=== PATIENT | male | born 1960 | race Caucasian/White ===

== ENCOUNTER → 2018-05-18 14:10 | Outpatient (CLI) | payer OTHER, SELFPAY ==
--- NOTE | 2018-05-18 14:13 | DI.RAD.S_ITS ---
PROCEDURE: XR LUMBAR SPINE MIN 4V INDICATIONS: spinal stenosis with scoliosis TECHNIQUE: 4 views of the lumbar spine acquired. COMPARISON: [facility], MR, L-SPINE WITHOUT CONTRAST, 03/15/2016, 16:19. [facility], CR, CHEST 2 VIEW, 12/19/2017, 15:05. [facility], CR, XR LUMBAR SPINE 2 OR 3VW, 05/14/2016, 15:46. FINDINGS: Bones: 5 [id number] vertebrae are present. Moderate to severe dextroscoliosis limiting the exam. Grade 1 retrolisthesis L2-L3. Multilevel disc degeneration, moderate to severe at the L3-L4 level. Moderate L4-L5 and L5-S1 disc degeneration and neural foraminal narrowing. No acute vertebral body compression fractures. Mild anterior wedging again visualized at the T12 and T11 levels. No suspicious bony lesions. Soft tissues: Overlying bowel gas pattern is normal. No suspicious soft tissue calcifications. Vascular calcifications indicate atherosclerosis. IMPRESSION: 1. Dextroscoliosis limiting the examination which again demonstrates multilevel degenerative change. 2. Mild wedging of the T12 and T11 levels similar to prior exams. Dictated by: Anthony Thomas [facility] Interpreted: Messi Santamaria MD on 05/18/2018 at 15:13 Approved by: Messi Santamaria M.D. on 05/18/2018 at 17:11
== END ==
PROVIDERS: PCP Family Medicine; Visit Provider Physical Medicine & Rehabilitation
DX: M48.061 Spinal stenosis, lumbar region without neurogenic claudication (principal); M41.9 Scoliosis, unspecified; M43.16 Spondylolisthesis, lumbar region; M51.36 Other intervertebral disc degeneration, lumbar region; M51.37 Other intervertebral disc degeneration, lumbosacral region; M48.54XS Collapsed vertebra, not elsewhere classified, thoracic region, sequela of fracture
CPT/HCPCS: 72110

== ENCOUNTER → 2018-06-15 07:20 | Outpatient (CLI) | payer OTHER, SELFPAY ==
--- NOTE | 2018-06-15 07:21 | DI.MRI.S_ITS ---
PROCEDURE: MR LUMBAR SPINE WO CON INDICATIONS: spinal stenosis with scoliosis TECHNIQUE: Noncontrast sagittal T1 spin echo and T2 fast echo, sagittal STIR, axial T1 and T2 fast spin echo through the lumbar spine. In cases with scoliosis, additional coronal T2 fast spin echo may be performed. COMPARISON: [facility], CR, XR LUMBAR SPINE 2 OR 3VW, 05/14/2016, 15:46. [facility], CR, XR LUMBAR SPINE MIN 4V, 05/18/2018, 13:50. FINDINGS: Image quality: Excellent. Alignment and Curvature: There is trace L1-L2, L2-L3, L3-L4 and L4-L5 retrolisthesis. There is approximately 25? of convex right lumbar spine scoliosis. Bone Marrow: Reactive endplate change is noted adjacent to the L1-L2, L2-L3, L3-L4 and L4-L5 discs. Small chronic appearing Schmorl's nodes noted in the inferior endplate of the T11, T12, L1 and L4 vertebral bodies. Small chronic appearing Schmorl's nodes noted in the superior endplate of the L2 and L3 vertebral bodies. Mild physiologic wedging of the T12 and L1 vertebral bodies noted. No acute vertebral body compression fractures. Spinal Cord: Conus medullaris terminates at the L1 level. Visualized cord demonstrates normal signal and size. Paraspinous Soft Tissues: No paravertebral masses. T12-L1: Loss of disc signal. Mild, diffuse disc bulge. Mild bilateral facet hypertrophy. Mild narrowing of the central canal. Mild bilateral neural foraminal narrowing. No neural impingement. Focal high intensity zone within the posterior annulus compatible with a fissure. L1-L2: Loss of disc signal and height. Mild, diffuse disc bulge. Mild bilateral facet hypertrophy. Mild narrowing of the central canal. Mild bilateral neural foraminal narrowing. No neural impingement. L2-L3: Loss of disc signal and height. Mild, diffuse disc bulge. Mild facet and mild ligamentum flavum hypertrophy. Mild to moderate narrowing of the central canal. Mild right and moderate left neural foraminal narrowing. No neural impingement. L3-L4: Loss of disc signal and height. Posterior disc osteophyte complex. Moderate facet and mild ligamentum flavum hypertrophy. Severe central stenosis. Severe right and moderate left neural foraminal narrowing with flattening deformity exiting right L3 nerve root. L4-L5: Loss of disc signal. Mild, diffuse disc bulge. Moderate right and mild left facet hypertrophy. Mild ligamentum flavum hypertrophy. Mild to moderate narrowing of the central canal. Severe right and moderate left neural foraminal narrowing flattening deformity exiting right L4 nerve root. L5-S1: Loss of disc signal. Minimal, diffuse disc bulge. Mild bilateral facet hypertrophy. No central stenosis. Mild bilateral neural foraminal narrowing. No neural impingement. IMPRESSION: 1. Convex right scoliosis. 2. Multilevel degenerative disc disease. 3. Multilevel facet arthropathy. 4. Severe L3-L4 central canal stenosis. Mild to moderate L2-L3 and L4-L5 central canal narrowing. Mild T12-L1 and L1-L2 Central canal narrowing. 5. Severe right and moderate left L3-L4 and L4-L5 neural foraminal narrowing. Mild right and moderate left L2-L3 neural foraminal narrowing. Mild bilateral T12-L1, L1-L2 and L5-S1 neural foraminal narrowing. Dictated by: Nina Ozuna MD, PhD on 06/15/2018 at 10:04 Approved by: Nina Ozuna MD, PhD on 06/15/2018 at 10:16
== END ==
PROVIDERS: PCP Family Medicine; Visit Provider Physical Medicine & Rehabilitation
DX: M48.061 Spinal stenosis, lumbar region without neurogenic claudication (principal); M51.16 Intervertebral disc disorders with radiculopathy, lumbar region; M47.26 Other spondylosis with radiculopathy, lumbar region; M41.26 Other idiopathic scoliosis, lumbar region
CPT/HCPCS: 72148

== ENCOUNTER 2018-06-24 09:39 | Outpatient (CLI) | payer OTHER, SELFPAY ==
[2018-06-24] VITALS (11 sets, daily range): BP systolic 101–149; BP diastolic 79–104; PULSE 71–94; RESP 14–20; TEMP 36.4; O2SAT 95–99
--- NOTE | 2018-06-24 09:40 | DI.RAD.S_ITS ---
PROCEDURE: PAIN L INTERLAMINAR/CAUDAL INJ INDICATIONS: SPINAL STENOSIS FINDINGS: Fluoroscopic spot filming was performed to verify placement of spinal needles at the L2-3 level(s), as labeled on the films. Appropriate location(s) of the needle tip(s) was confirmed by injection of iodinated contrast. IMPRESSION: Successful left-sided L2-L3 transforaminal needle tip localization for epidural steroid injection. Dictated by: Messi Santamaria M.D. on 06/25/2018 at 9:56 Approved by: Messi Santamaria M.D. on 06/25/2018 at 9:57
[2018-06-24] MEDS: MIDAZOLAM 5 MG/5 ML VIAL IV (10:30)
[2018-06-24] MEDS: DEXAMETHASONE 10 MG/ML VIAL 20 MG INJ (10:37)
[2018-06-24] MEDS: methylPREDNISolone acetate 80 MG/ML VIAL INJ (10:37)
[2018-06-24] MEDS: BUPIVACAINE 0.25% (PF) VIAL 2 ML INJ (10:37)
[2018-06-24] MEDS: IOPAMIDOL 15 ML VIAL 3 ML INJ (10:37)
--- NOTE | 2018-06-24 10:54 | P.PCN_ITS ---
Procedures Date/Time Date of procedure: 06/24/18 Time of procedure: 10:53 General Procedure description: POST OP DIAGNOSIS 1. HNP WITH RADICULAR FEATURES, 2. MULTILEVEL CENTRAL STENOSIS, PROCEDURES 1. FLUORSCOPICALLY GUIDED CONTRAST CONTROLLED INTERLAMINAR EPIDURAL STEROID INJECTION - L2/3 PHYSICIAN: Kosta Helm DO INDICATIONS Kosta is referred by for treatment of Bilateral Foraminal Stenosis L> R LE symptoms. FINDINGS Multilevel Central Spinal Stenosis with Nerve Root Compression DESCRIPTION OF PROCEDURE Fluoroscopically guided, contrast-controlled L2/3 translaminar epidural steroid injection. Following denial of allergy and review of potential side effects and complications, including, but not necessarily limited to, infection, allergic reaction, local tissue breakdown, temporary as well as permanent nerve injury, paralysis, stroke and possible , the patient indicated that the patient understood and agreed to proceed. An informed consent document was signed by the patient, witnessed by a nurse, and placed in the patient's chart. Additionally, other treatment options including modalities, medications, and physical therapy were reviewed with the patient. After review of previous anaesthesic history and IV conscious sedation the patient was deemed safe to proceed with todays procedure with IV conscious sedation as ASA class II designation. Safety time-out was performed to confirm patient ID, procedure to be performed and site of procedure. IV sedation was accomplished with a combination of 5mg of Versed was administered by the RN after DO order, titrated to patient comfort during the course of the procedure while the patient remained responsive to all verbal commands. In the prone position, following sterile prep and drape of the lumbar region, the L2/3 translaminar space was identified fluoroscopically. The skin was anesthetized via a 25-gauge, 1.5-inch needle with 1% lidocaine solution. At this point, a 22-gauge short bevel spinal needle was atraumatically introduced and advanced under fluoroscopic guidance into the region of the L2/3 translaminar space. Depth was confirmed on lateral view. Radiological data, including multiple fluoroscopic views of the lumbar spine, reveal a spinal needle at the L2/3 translaminar space. Lateral views then show placement of the needle in the epidural space. Subsequent views show contrast material flowing superiorly and inferiorly in the epidural space. No vascular or intrathecal uptake is observed. At this point, using loss of resistance technique with saline and air, the epidural space was entered. This was confirmed following negative aspiration with injection of approximately 1.5 cc of Isovue 200, showing excellent epidural flow without vascular or intrathecal uptake. At this point, 1 cc of 1 % lidocaine solution combined with 3 cc or 20 mg of dexamethasone and 80mg Depo medrol was injected without incident. The patient tolerated the procedure well without signs or symptoms of complications prior to transfer to the recovery area continued monitoring without incident. The patient was then transferred to the recovery area where they were observed for an appropriate period of time after the injection. The patient reported a VAS score of 6 prior to the procedure and a post-procedure VAS of 0. Total Fluoroscopy Time: 11.8 seconds Total Conscious Sedation Time: 24min POST OP INSTRUCTIONS The patient was provided a Pain Log to continue to record their response to the target-specific procedure prior to follow-up visit with their referring physician. Additionally, specific post-injection care instructions and a contact number to our office were provided if concerns arise regarding possible complications associated with the procedure are suspected. Kosta eHlm DO
== END 2018-06-24 11:25 ==
LOC: RAD 09:40
PROVIDERS: PCP Family Medicine; Visit Provider Physical Medicine & Rehabilitation
DX: M48.061 Spinal stenosis, lumbar region without neurogenic claudication (principal); M51.16 Intervertebral disc disorders with radiculopathy, lumbar region
CPT/HCPCS: 62323; 99152; J1040; J1100; J2250

== ENCOUNTER → 2020-04-11 07:13 | Outpatient (CLI) | payer OTHER, SELFPAY ==
[2020-04-11 07:46] LABS: Add Manual Diff / Slide Review NO; Basophils Absolute Auto 0 /uL (0-100); Basophils Percent Auto 0.7 % (0-2); Eosinophils Absolute Auto 100 /uL (0-450); Eosinophils Percent Auto 1.5 % (2-4); Hemoglobin 14.9 g/dL (13.5-17.5); Lymphocytes Absolute Auto 1900 /uL (1100-4500); Mean Corpuscular HGB Conc 33.2 % (30-36); Mean Corpuscular Hemoglobin 30.6 PG (26-34); Mean Corpuscular Volume 92.1 fL (80-100); Monocytes Absolute Auto 500 /uL (0-900); Monocytes Percent Auto 9.7 % (3-14); Neutrophils Absolute Auto 2300 /uL (1500-7000); Neutrophils Percent Auto 48.1 % (50-75); Platelet Count 193 X10^3/uL (150-400); Red Blood Cell Count 4.88 X10^6/uL (4.5-5.9); Red Cell Distribution Width 13.3 % (11.6-14.8); White Blood Cell Count 4.9 X10^3/uL (4.5-11.0)
[2020-04-11 07:59] LABS: Alanine Aminotransferase 19 IU/L (<50); Albumin 4.3 g/dL (3.5-5.0); Albumin Globulin Ratio 1.5 (1.0-2.8); Alkaline Phosphatase 61 U/L (38-126); Aspartate Aminotransferase 27 IU/L (17-59); BUN Creatinine Ratio 21.9 (6-22); Bilirubin Total 0.6 mg/dL (0.2-1.3); Blood Urea Nitrogen 21 mg/dL (9-20); Calcium 9.5 mg/dL (8.4-10.2); Carbon Dioxide 28 mmol/L (22-32); Chloride 106 mmol/L (98-107); Cholesterol 232 mg/dL (140-199); Estimated Glomerular Filt Rate > 60.0 mL/min (>60); Globulin 2.8 g/dL (1.7-4.1); Glucose 92 mg/dL (70-100); HDL Cholesterol 40 mg/dL (40-60); HEMOLYSIS < 15 (0-50); LDL Cholesterol Calculated 159 mg/dL (<100); Sodium 139 mmol/L (137-145); Total Protein 7.1 g/dL (6.3-8.2); Triglycerides 166 mg/dL (35-150)
[2020-04-11 08:28] LABS: Prostate Specific Antigen Scrn 2.65 ng/mL (0.1-4.0)
[2020-04-11 08:29] LABS: TSH w/ Reflex to FT4 1.52 uIU/mL (0.47-4.68)
== END ==
PROVIDERS: Referring Provider Registered Nurse Diabetes Educator; Visit Provider Registered Nurse Diabetes Educator
DX: E78.5 Hyperlipidemia, unspecified (principal); K22.70 Barrett's esophagus without dysplasia; R51 Headache; Z80.9 Family history of malignant neoplasm, unspecified; Z12.5 Encounter for screening for malignant neoplasm of prostate
CPT/HCPCS: 36415; 80053; 80061; 84443; 85025; G0103

== ENCOUNTER → 2020-04-17 07:04 | Outpatient (CLI) | payer OTHER, SELFPAY ==
--- NOTE | 2020-04-17 07:05 | DI.MRI.S_ITS ---
PROCEDURE: MR HEAD/BRAIN WO CON INDICATIONS: Headaches TECHNIQUE: Noncontrast axial T1 spin echo, axial T2 fast spin echo, sagittal and axial FLAIR, coronal T2 fast spin echo, axial gradient echo, axial diffusion and ADC through the brain. COMPARISON: None. FINDINGS: Image quality: Excellent. CSF Spaces: Basal cisterns are patent. No extra-axial fluid collections. Ventricles are normal in size and shape. Brain: No intracranial masses or hemorrhage. Wren/white matter interface is normal. Brainstem appears normal. Diffusion-weighted images demonstrate no acute ischemic insult. No chronic ischemic insults. Normal intravascular flow voids are present. Skull and face: Calvarium has normal marrow signal. Orbits appear normal. Sinuses: Sinuses and mastoids are clear. IMPRESSION: Unremarkable intracranial study, without an imaging explanation found for the patient's presenting history of headache. Dictated by: Michele Fernandez M.D. on 04/17/2020 at 9:40 Approved by: Michele Fernandez M.D. on 04/17/2020 at 9:40
== END ==
PROVIDERS: PCP Registered Nurse Diabetes Educator; Referring Provider Registered Nurse Diabetes Educator; Visit Provider Registered Nurse Diabetes Educator
DX: R51 Headache (principal)
CPT/HCPCS: 70551

== ENCOUNTER → 2021-01-02 07:01 | Outpatient (CLI) | payer OTHER, SELFPAY ==
[2021-01-02 08:56] LABS: Hematocrit 45.3 % (41-53); Hemoglobin 15.1 g/dL (13.5-17.5); Mean Corpuscular HGB Conc 33.4 % (30-36); Mean Corpuscular Hemoglobin 30.3 PG (26-34); Mean Corpuscular Volume 90.9 fL (80-100); Platelet Count 202 X10^3/uL (150-400); Red Blood Cell Count 4.98 X10^6/uL (4.5-5.9); Red Cell Distribution Width 13.4 % (11.6-14.8)
[2021-01-02 09:22] LABS: Alanine Aminotransferase 18 IU/L (<50); Albumin 4.3 g/dL (3.5-5.0); Albumin Globulin Ratio 1.4 (1.0-2.8); Alkaline Phosphatase 58 U/L (38-126); Aspartate Aminotransferase 25 IU/L (17-59); BUN Creatinine Ratio 23.4 (6-22); Bilirubin Total 0.5 mg/dL (0.2-1.3); Blood Urea Nitrogen 25 mg/dL (9-20); Calcium 9.7 mg/dL (8.4-10.2); Carbon Dioxide 29 mmol/L (22-32); Chloride 104 mmol/L (98-107); Cholesterol 238 mg/dL (140-199); Estimated Glomerular Filt Rate > 60.0 mL/min (>60); Glucose 86 mg/dL (70-100); HDL Cholesterol 46 mg/dL (40-60); HEMOLYSIS < 15 (0-50); LDL Cholesterol Calculated 164 mg/dL (<100); Potassium 3.9 mmol/L (3.4-5.1); Sodium 140 mmol/L (137-145); Total Protein 7.3 g/dL (6.3-8.2); Triglycerides 142 mg/dL (35-150)
[2021-01-02 09:40] LABS: Vitamin D 25 Hydroxy (D3) 48.1 ng/mL (30.0-100.0)
[2021-01-02 09:51] LABS: Prostate Specific Antigen 2.67 ng/mL (0.10-4.00)
[2021-01-02 09:53] LABS: Testosterone 561 ng/dL (71.8-623)
== END ==
PROVIDERS: PCP Registered Nurse Diabetes Educator; Referring Provider Registered Nurse Diabetes Educator; Visit Provider Registered Nurse Diabetes Educator
DX: E78.5 Hyperlipidemia, unspecified (principal); R53.83 Other fatigue; Z80.9 Family history of malignant neoplasm, unspecified
CPT/HCPCS: 36415; 80053; 80061; 82306; 84153; 84403; 84443; 85027

== ENCOUNTER → 2021-06-14 07:09 | Outpatient (CLI) | payer OTHER, SELFPAY ==
[2021-06-14 09:03] LABS: Cholesterol 146 mg/dL (140-199); HDL Cholesterol 56 mg/dL (40-60); LDL Cholesterol Calculated 72 mg/dL (<100); Triglycerides 88 mg/dL (35-150)
== END ==
PROVIDERS: PCP Registered Nurse Diabetes Educator; Referring Provider Registered Nurse Diabetes Educator; Visit Provider Registered Nurse Diabetes Educator
DX: E78.5 Hyperlipidemia, unspecified (principal)
CPT/HCPCS: 36415; 80061

== ENCOUNTER → 2022-10-28 07:05 | Outpatient (CLI) | payer OTHER, SELFPAY ==
[2022-10-28 08:31] LABS: Hematocrit 44.1 % (41-53); Hemoglobin 15.2 g/dL (13.5-17.5); Mean Corpuscular HGB Conc 34.4 % (30-36); Mean Corpuscular Hemoglobin 31.7 PG (26-34); Mean Corpuscular Volume 92.4 fL (80-100); Platelet Count 193 X10^3/uL (150-400); Red Blood Cell Count 4.78 X10^6/uL (4.5-5.9); Red Cell Distribution Width 13.2 % (11.6-14.8)
[2022-10-28 08:55] LABS: Alanine Aminotransferase 30 IU/L (<50); Albumin 4.4 g/dL (3.5-5.0); Albumin Globulin Ratio 1.5 (1.0-2.8); Alkaline Phosphatase 56 U/L (38-126); Aspartate Aminotransferase 29 IU/L (17-59); BUN Creatinine Ratio 23.9 (6-22); Bilirubin Total 0.5 mg/dL (0.2-1.3); Blood Urea Nitrogen 17 mg/dL (9-20); Calcium 9.1 mg/dL (8.4-10.2); Carbon Dioxide 28 mmol/L (22-32); Chloride 104 mmol/L (98-107); Cholesterol 164 mg/dL (140-199); Estimated Glomerular Filt Rate > 60 mL/min (>60); Glucose 93 mg/dL (80-110); HDL Cholesterol 47 mg/dL (40-60); HEMOLYSIS < 15 (0-50); LDL Cholesterol Calculated 94 mg/dL (<100); Sodium 142 mmol/L (137-145); Total Protein 7.4 g/dL (6.3-8.2); Triglycerides 115 mg/dL (35-150)
[2022-10-28 09:22] LABS: Prostate Specific Antigen 2.88 ng/mL (0.10-4.00)
[2022-10-28 09:28] LABS: TSH w/ Reflex to FT4 2.25 uIU/mL (0.47-4.68)
== END ==
PROVIDERS: PCP Registered Nurse Diabetes Educator; Referring Provider Registered Nurse Diabetes Educator; Visit Provider Registered Nurse Diabetes Educator
DX: E78.5 Hyperlipidemia, unspecified (principal); Z80.9 Family history of malignant neoplasm, unspecified
CPT/HCPCS: 36415; 80053; 80061; 84153; 84443; 85027

== ENCOUNTER → 2022-11-13 16:28 | Outpatient (CLI) | payer OTHER, SELFPAY ==
--- NOTE | 2022-11-13 16:30 | DI.RAD.S_ITS ---
PROCEDURE: XR LUMBAR SPINE MIN 4V INDICATIONS: BACK PAIN TECHNIQUE: 5 views of the lumbar spine were acquired, including bilateral oblique views. COMPARISON: [facility], , XR LUMBAR SPINE MIN 4V, 05/18/2018, 13:50. FINDINGS: Bones: 5 nonrib-bearing vertebrae are present convex right scoliosis, Louis angle of 31?. Grade 1 retrolisthesis of L2 on L3. Moderate to severe disc height loss at L1-2 and L2-3. Mild at remaining levels. Multilevel facet arthrosis. Soft tissues: Overlying bowel gas pattern is normal. No suspicious soft tissue calcifications. Oblique images: No pars defects. IMPRESSION: 1. Convex right rotoscoliosis. 2. Multilevel [id number] degenerative disc disease. Dictated by: John Cardenas M.D. on 11/13/2022 at 17:13 Approved by: John Cardenas M.D. on 11/13/2022 at 17:15
== END ==
PROVIDERS: PCP Registered Nurse Diabetes Educator; Referring Provider Physical Medicine & Rehabilitation; Visit Provider Physical Medicine & Rehabilitation
DX: M51.16 Intervertebral disc disorders with radiculopathy, lumbar region (principal); M41.20 Other idiopathic scoliosis, site unspecified; M48.061 Spinal stenosis, lumbar region without neurogenic claudication
CPT/HCPCS: 72110

== ENCOUNTER 2022-12-12 09:50 | Outpatient (CLI) | payer OTHER, SELFPAY ==
[2022-12-12] VITALS (10 sets, daily range): BP systolic 112–136; BP diastolic 80–87; PULSE 73–85; RESP 11–20; TEMP 36.6; O2SAT 92–97
--- NOTE | 2022-12-12 09:52 | DI.RAD.S_ITS ---
PROCEDURE: PAIN L INTERLAMINAR/CAUDAL INJ INDICATIONS: SPONDYLOSIS COMPARISON: [facility], XA, PAIN L INTERLAMINAR/CAUDAL INJ, 06/24/2018, 10:35. FINDINGS: Fluoroscopic spot filming was performed to verify placement of spinal needles at the mid lumbar level(s), as labeled on the films. Appropriate location(s) of the needle tip(s) was confirmed by injection of iodinated contrast. IMPRESSION: Needle placement as above. Dictated by: Justin Holder M.D. on 12/12/2022 at 14:22 Transcribed by: VERONA on 12/12/2022 at 14:22 Approved by: Justin Holder M.D. on 12/12/2022 at 16:34
[2022-12-12] MEDS: IOPAMIDOL 15 ML VIAL 3 ML INJ (10:32)
[2022-12-12] MEDS: BUPIVACAINE 0.25% (PF) VIAL 5 ML SUBCUT (10:32)
[2022-12-12] MEDS: BETAMETHASONE 30 MG/5 ML MDV 6 MG INJ (10:33)
[2022-12-12] MEDS: DEXAMETHASONE 10 MG/ML VIAL 20 MG INJ (10:35)
[2022-12-12] MEDS: MIDAZOLAM 2 MG/2 ML VIAL 4 MG IV (10:36)
--- NOTE | 2022-12-12 10:50 | PM.PROC.IR.1 ---
Date/Time/Diagnoses Date of procedure: 12/12/22 Time of procedure: 10:50 Pre-procedure diagnosis: 1. HNP WITH RADICULAR FEATURES, 2. MULTILEVEL CENTRAL STENOSIS, Post-procedure diagnosis: same Procedure Notes Procedure: 1. FLUOROSCOPICALLY GUIDED CONTRAST CONTROLLED INTERLAMINAR EPIDURAL STEROID INJECTION - L2/3 Indications: Kosta is referred by JO Diamond for treatment of Bilateral Foraminal Stenosis L>R LE symptoms. Physician: Kosta Helm Total Fluoroscopy time (seconds): 8 Total sedation minutes: 14 Complications: none Procedure in detail & Post-procedure care: FINDINGS Multilevel Central Spinal Stenosis with Nerve Root Compression DESCRIPTION OF PROCEDURE Fluoroscopically guided, contrast-controlled L2/3 translaminar epidural steroid injection. Following review of allergy and review of potential side effects and complications, including, but not necessarily limited to, infection, allergic reaction, local tissue breakdown, temporary as well as permanent nerve injury, paralysis, stroke and possible , the patient indicated that the patient understood and agreed to proceed. An informed consent document was signed by the patient, witnessed by a nurse, and placed in the patient's chart. Additionally, other treatment options including modalities, medications, and physical therapy were reviewed with the patient. After review of previous anaesthesic history and IV conscious sedation the patient was deemed safe to proceed with today?s procedure with IV conscious sedation as ASA class II designation. Safety time-out was performed to confirm patient ID, procedure to be performed and site of procedure. IV sedation was accomplished with a combination of 4mg Versed administered by the RN after DO order, titrated to patient comfort during the course of the procedure while the patient remained responsive to all verbal commands. In the prone position, following sterile prep and drape of the lumbar region,the L2/3 translaminar space was identified fluoroscopically. The skin was anesthetized via a 25-gauge, 1.5-inch needle with 1% lidocaine solution. At this point, a 22-gauge short bevel spinal needle was atraumatically introduced and advanced under fluoroscopic guidance into the region of the L2/3 translaminar space. Depth was confirmed on lateral view. Radiological data, including multiple fluoroscopic views of the lumbar spine, reveal a spinal needle at the L2/3 translaminar space. Lateral views then show placement of the needle in the epidural space. Subsequent views show contrast material flowing superiorly and inferiorly in the epidural space. No vascular or intrathecal uptake is observed. At this point, using loss of resistance technique with saline and air, the epidural space was entered. This was confirmed following negative aspiration with injection of approximately 1.5 cc of Isovue 200, showing excellent epidural flow without vascular or intrathecal uptake. At this point, 1 cc of 1% lidocaine solution combined with 3cc or 20mg of dexamethasone and 6mg of betamethasone was injected without incident. The patient tolerated the procedure well without signs or symptoms of complications prior to transfer to the recovery area continued monitoring without incident. The patient was then transferred to the recovery area where they were observed for an appropriate period of time after the injection. The patient reported a VAS score of 8 prior to the procedure and a post-procedure VAS of 1. POST OP INSTRUCTIONS The patient was provided a Pain Log to continue to record their response to the target-specific procedure prior to follow-up visit with their referring physician. Additionally, specific post-injection care instructions and a contact number to our office were provided if concerns arise regarding possible complications associated with the procedure are suspected.
== END 2022-12-12 11:10 | disposition home or self-care (01) ==
LOC: RAD 09:51
PROVIDERS: PCP Registered Nurse Diabetes Educator; Referring Provider Physical Medicine & Rehabilitation; Visit Provider Physical Medicine & Rehabilitation
DX: M51.16 Intervertebral disc disorders with radiculopathy, lumbar region (principal); M48.061 Spinal stenosis, lumbar region without neurogenic claudication
CPT/HCPCS: 62323; 99152; J0702; J1100; J2250; J3490

== ENCOUNTER → 2023-03-12 16:12 | Outpatient (CLI) | payer OTHER, SELFPAY ==
--- NOTE | 2023-03-12 16:28 | DI.MRI.S_ITS ---
PROCEDURE: MR LUMBAR SPINE WO CON INDICATIONS: SCOLIOSIS PROGRESSION RIGHT LOWER EXTREMITY RADICULAR FEATUR TECHNIQUE: Noncontrast sagittal T1 spin echo and T2 fast echo, sagittal STIR, and T2 fast spin echo through the lumbar spine. In cases with scoliosis, additional coronal T2 fast spin echo may be performed. COMPARISON: [facility], , MR LUMBAR SPINE WO CON, 06/15/2018, 7:45. FINDINGS: Image quality: Excellent. Alignment and Curvature: There is 21.9? dextroscoliosis centered at L2. There was 20.7? dextroscoliosis on the comparison MRI dated June 15, 2018. Bone Marrow: Marrow is of normal overall signal. No acute vertebral body compression fractures. Spinal Cord: Conus medullaris terminates at the L1 level. Visualized cord demonstrates normal signal and size. Paraspinous Soft Tissues: No paravertebral masses. T12-L1: Mild disc desiccation and height loss. Broad-based disc bulge. Moderate facet ligamentum flavum hypertrophy. Moderate canal stenosis. Moderate left and no right foraminal stenosis. Findings are unchanged. L1-L2: Moderate disc desiccation and height loss. Broad-based disc bulge. No canal stenosis. Mild left foraminal narrowing. No right foraminal stenosis. Findings are unchanged. L2-L3: Moderate disc desiccation and height loss. Broad-based disc bulge. Moderate facet ligamentum flavum hypertrophy. Moderate bilateral foraminal stenosis. Findings are unchanged. L3-L4: Severe disc desiccation and height loss. Severe facet ligamentum flavum hypertrophy. Severe canal stenosis. Severe right and moderate left foraminal stenosis. Findings are unchanged from the prior study. L4-L5: Moderate disc desiccation and height loss. Moderate facet ligamentum flavum hypertrophy. No canal stenosis. Severe right and moderate left foraminal stenosis. Findings are unchanged. L5-S1: Mild disc desiccation and height loss. Broad-based disc bulge. No canal stenosis. No foraminal stenosis. IMPRESSION: 1. Overall similar findings when compared with the MRI dated June 15, 2018. Right convex scoliotic deformity now measures 21.9?. Dictated by: Willow Hernandez M.D. on 03/12/2023 at 16:48 Approved by: Willow Hernandez M.D. on 03/12/2023 at 16:55
== END ==
PROVIDERS: PCP Registered Nurse Diabetes Educator; Referring Provider Physical Medicine & Rehabilitation; Visit Provider Physical Medicine & Rehabilitation
DX: M41.20 Other idiopathic scoliosis, site unspecified (principal); M48.061 Spinal stenosis, lumbar region without neurogenic claudication; M54.17 Radiculopathy, lumbosacral region
CPT/HCPCS: 72148

== ENCOUNTER 2023-03-27 08:56 | Outpatient (CLI) | payer OTHER, SELFPAY ==
--- NOTE | 2023-03-27 08:57 | DI.RAD.S_ITS ---
PROCEDURE: PAIN L/S TRANSFORAMINAL INJECT INDICATIONS: SPONDYLOSIS COMPARISON: [facility], CR, XR LUMBAR SPINE MIN 4V, 11/13/2022, 16:27. [facility], MR, MR LUMBAR SPINE WO CON, 03/12/2023, 16:28. FINDINGS: Fluoroscopic spot filming was performed to verify placement of spinal needles at the L3-L4 level(s), as labeled on the films. Appropriate location(s) of the needle tip(s) was confirmed by injection of iodinated contrast. IMPRESSION: Fluoroscopy for pain management. Dictated by: Domenico Caro M.D. on 03/27/2023 at 10:08 Approved by: Domenico Caro M.D. on 03/27/2023 at 10:08
[2023-03-27 09:05] VITALS: BP 149/95; PULSE 66; RESP 18; TEMP 36.7; O2SAT 97
[2023-03-27 09:46] VITALS: BP 134/87; PULSE 66; RESP 11; O2SAT 96
[2023-03-27] MEDS: IOPAMIDOL 15 ML VIAL 3 ML INJ (09:47)
[2023-03-27] MEDS: DEXAMETHASONE 10 MG/ML VIAL 20 MG INJ (09:48)
[2023-03-27] MEDS: BUPIVACAINE 0.25% (PF) VIAL 2 ML INJ (09:48)
[2023-03-27] MEDS: methylPREDNISolone acetate 80 MG/ML VIAL INJ (09:49)
[2023-03-27 09:51] VITALS: BP 134/92; PULSE 62; RESP 14; O2SAT 94
[2023-03-27 09:56] VITALS: BP 126/90; PULSE 65; RESP 15; O2SAT 96
[2023-03-27 10:00] VITALS: BP 142/82; PULSE 74; RESP 16; O2SAT 97
--- NOTE | 2023-03-27 10:00 | P.PCN_ITS ---
Date/Time/Diagnoses Date of procedure: 03/27/23 Time of procedure: 10:01 Pre-procedure diagnosis: 1. FORAMINAL STENOSIS WITH LE SYMPTOMS Post-procedure diagnosis: same Procedure Notes Procedure: 1. FLUOROSCOPICALLY GUIDED CONTRAST CONTROLLED TRANSFORAMINAL EPIDURAL STEROID INJECTION - RIGHT L3/4 TFESI Indications: Kosta is referred by JO Diamond and Dr. Colon for treatment of Foraminal Stenosis with right LE Symptoms Physician: Kosta Helm Total Fluoroscopy time (seconds): 13 Total sedation minutes: 0 Complications: none Procedure in detail & Post-procedure care: FINDINGS Foraminal Nerve Root Compression secondary to disc disease and facet hypertrophy DESCRIPTION OF PROCEDURE Following review of allergy and review of potential side effects and complications, including, but not necessarily limited to, infection, allergic reaction, local tissue breakdown, stroke, temporary or permanent nerve injury, paralysis, and possible , the patient indicated that the patient understood and agreed to proceed. An informed consent document was signed by the patient, witnessed by a nurse, and placed in the patient's chart. Additionally, other treatment options including medications, modalities, and physical therapy were reviewed with the patient. After review of previous anaesthesic history and IV conscious sedation the patient was deemed safe to proceed with today?s procedure with IV conscious sedation as ASA class II designation. Safety time-out was performed to confirm patient ID, procedure to be performed and site of procedure. IV sedation was deemed unnecessary and thus not administered by the RN after DO order, titrated to patient comfort during the course of the procedure while the patient remained responsive to all verbal commands. In the prone position following sterile prep and drape of the lumbar region, the right L3/4 posterior neuroforamen was identified fluoroscopically. The skin was anesthetized via a 25-gauge 1.5-inch needle with 1% lidocaine solution. At this point, a 25-gauge 3.5-inch spinal needle was atraumatically introduced and advanced under fluoroscopic guidance through the posterior right L3/4 neuroforamen to approximately the anterior aspect of the canal. Depth was confirmed on lateral view. Following negative aspiration, injection of approximately 1.5 cc of Isovue 200 under live fluoroscopy in the AP view confir med excellent flow along the nerve root, into the epidural space without vascular or intrathecal uptake observed. Radiological data, including multiple fluoroscopic views of the lumbosacral spine, reveal a spinal needle at the right L3/4 posterior neuroforamen. Subsequent views show flow of contrast material flowing superiorly and inferiorly along the nerve root confirming epidural flow. Subsequently, a test dose of 1.5 cc of 1% lidocaine solution was administered and patient was observed for two minutes for signs or symptoms of complications, including abdominal pain, shortness of breath, bilateral upper or lower extremity weakness, nausea and vomiting, prior to steroid injection. At this point, a total of 3cc or 20mg of dexamethasone and 80mg depomedrol was injected without incident. The patient tolerated the procedure well without signs or symptoms of complications prior to transfer to the recovery area continued monitoring without incident. The patient was then transferred to the recovery area where they were observed for an appropriate time after the injection. The patient reported a VAS score of 7 prior to the procedure and a post-procedure VAS of 0. POST OP INSTRUCTIONS The patient was provided a Pain Log to continue to record their response to the target-specific procedure prior to follow-up visit with their referring physician. Additionally, specific post-injection care instructions and a contact number to our office were provided if concerns arise regarding possible complications associated with the procedure are suspected.
== END 2023-03-27 10:10 | disposition home or self-care (01) ==
LOC: RAD 08:57
PROVIDERS: PCP Registered Nurse Diabetes Educator; Referring Provider Physical Medicine & Rehabilitation; Visit Provider Physical Medicine & Rehabilitation
DX: M48.061 Spinal stenosis, lumbar region without neurogenic claudication (principal); M51.16 Intervertebral disc disorders with radiculopathy, lumbar region; M47.26 Other spondylosis with radiculopathy, lumbar region
CPT/HCPCS: 64483; J0702; J1040; J1100; J3490

== ENCOUNTER → 2023-07-02 06:58 | Outpatient (CLI) | payer OTHER, SELFPAY ==
[2023-07-02 08:46] LABS: Cholesterol 142 mg/dL (140-199); HDL Cholesterol 52 mg/dL (40-60); LDL Cholesterol Calculated 74 mg/dL (<100); Triglycerides 82 mg/dL (35-150)
== END ==
PROVIDERS: PCP Registered Nurse Diabetes Educator; Referring Provider Registered Nurse Diabetes Educator; Visit Provider Registered Nurse Diabetes Educator
DX: E78.5 Hyperlipidemia, unspecified (principal)
CPT/HCPCS: 36415; 80061

== ENCOUNTER → 2023-12-17 07:00 | Outpatient (CLI) | payer OTHER, SELFPAY ==
[2023-12-17 07:45] LABS: Hematocrit 44.5 % (41-53); Hemoglobin 15.3 g/dL (13.5-17.5); Mean Corpuscular HGB Conc 34.3 % (30-36); Mean Corpuscular Hemoglobin 31.6 PG (26-34); Mean Corpuscular Volume 92.2 fL (80-100); Platelet Count 171 X10^3/uL (150-400); Red Blood Cell Count 4.83 X10^6/uL (4.5-5.9); Red Cell Distribution Width 13.6 % (11.6-14.8); White Blood Cell Count 5.4 X10^3/uL (4.5-11.0)
[2023-12-17 08:07] LABS: Alanine Aminotransferase 33 IU/L (<50); Albumin 4.1 g/dL (3.5-5.0); Albumin Globulin Ratio 1.6 (1.0-2.8); Alkaline Phosphatase 56 U/L (38-126); Aspartate Aminotransferase 32 IU/L (17-59); BUN Creatinine Ratio 24.6 (6-22); Bilirubin Total 0.6 mg/dL (0.2-1.3); Blood Urea Nitrogen 17 mg/dL (9-20); Calcium 9.4 mg/dL (8.4-10.2); Carbon Dioxide 26 mmol/L (22-32); Chloride 110 mmol/L (98-107); Cholesterol 163 mg/dL (140-199); Estimated Glomerular Filt Rate > 60 mL/min (>60); Globulin 2.6 g/dL (1.7-4.1); Glucose 92 mg/dL (80-110); HDL Cholesterol 58 mg/dL (40-60); HEMOLYSIS < 15 (0-50); LDL Cholesterol Calculated 85 mg/dL (<100); Potassium 4.2 mmol/L (3.4-5.1); Sodium 141 mmol/L (137-145); Total Protein 6.7 g/dL (6.3-8.2); Triglycerides 101 mg/dL (35-150)
[2023-12-17 08:37] LABS: Prostate Specific Antigen 3.34 ng/mL (0.10-4.00); TSH w/ Reflex to FT4 2.15 uIU/mL (0.47-4.68)
== END ==
LOC: LAB 07:01
PROVIDERS: PCP Registered Nurse Diabetes Educator; Referring Provider Registered Nurse Diabetes Educator; Visit Provider Registered Nurse Diabetes Educator
DX: Z00.00 Encounter for general adult medical examination without abnormal findings (principal); Z80.42 Family history of malignant neoplasm of prostate; E78.5 Hyperlipidemia, unspecified
CPT/HCPCS: 36415; 80053; 80061; 84153; 84443; 85027

== ENCOUNTER → 2025-02-02 06:58 | Outpatient (CLI) | payer OTHER, SELFPAY ==
[2025-02-02 08:16] LABS: Hematocrit 45.6 % (41-53); Hemoglobin 15.6 g/dL (13.5-17.5); Mean Corpuscular HGB Conc 34.3 % (30-36); Mean Corpuscular Hemoglobin 31.9 PG (26-34); Mean Corpuscular Volume 93.1 fL (80-100); Platelet Count 175 X10^3/uL (150-400); Red Cell Distribution Width 13.5 % (11.6-14.8); White Blood Cell Count 4.8 X10^3/uL (4.5-11.0)
[2025-02-02 08:38] LABS: Alanine Aminotransferase 30 IU/L (<50); Albumin 4.4 g/dL (3.5-5.0); Alkaline Phosphatase 49 U/L (38-126); Aspartate Aminotransferase 32 IU/L (17-59); BUN Creatinine Ratio 21.8 (6-22); Bilirubin Total 0.5 mg/dL (0.2-1.3); Blood Urea Nitrogen 19 mg/dL (9-20); Calcium 9.6 mg/dL (8.4-10.2); Carbon Dioxide 29 mmol/L (22-32); Chloride 105 mmol/L (98-107); Cholesterol 162 mg/dL (140-199); Estimated Glomerular Filt Rate > 60 mL/min (>60); Globulin 2.2 g/dL (1.7-4.1); Glucose 91 mg/dL (70-99); HDL Cholesterol 62 mg/dL (40-60); HEMOLYSIS < 15 (0-50); LDL Cholesterol Calculated 88 mg/dL (<100); Potassium 5.1 mmol/L (3.4-5.1); Sodium 141 mmol/L (137-145); Total Protein 6.6 g/dL (6.3-8.2); Triglycerides 62 mg/dL (35-150)
[2025-02-02 09:08] LABS: TSH w/ Reflex to FT4 1.48 uIU/mL (0.47-4.68)
[2025-02-02 09:11] LABS: Prostate Specific Antigen Scrn 2.66 ng/mL (0.1-4.0)
== END ==
PROVIDERS: PCP Registered Nurse Diabetes Educator; Referring Provider Registered Nurse Diabetes Educator; Visit Provider Registered Nurse Diabetes Educator
DX: Z12.5 Encounter for screening for malignant neoplasm of prostate (principal); E78.5 Hyperlipidemia, unspecified; R03.0 Elevated blood-pressure reading, without diagnosis of hypertension; Z80.42 Family history of malignant neoplasm of prostate
CPT/HCPCS: 36415; 80053; 80061; 84443; 85027; G0103

== ENCOUNTER → 2025-03-11 15:08 | Outpatient (CLI) | payer OTHER, SELFPAY ==
--- NOTE | 2025-03-11 15:08 | DI.NM.S_ITS ---
PROCEDURE: NM EXERCISE TREADMILL NON NUC COMPARISON: None. INDICATIONS: eval chest pain FINDINGS: Patient exercised per the standard [facility] protocol. Total exercise time was 10 minutes and 0 seconds. Maximum heart rate attained is 174 bpm which is 110% of maximum predicted heart rate. Maximum blood pressure 170/102[place] [address]. JULIO -18%. 12.8 METS. No ischemic changes noted. Frequent nonsustained polymorphic ventricular tachycardia noted at approximately 1 minute into recovery. The salvos of nonsustained ventricular tachycardia with longest duration of 8 beats lasted for approximately 6 seconds. No chest pains voiced. Normal heart rate and blood pressure response to exercise. IMPRESSION: 1. Positive exercise treadmill stress test for ischemia due to the presence of nonsustained ventricular tachycardia noted in recovery. 2. Good exercise tolerance. Dictated by: Elmo Oreilly M.D. on 03/11/2025 at 17:07 Approved by: Elmo Oreilly M.D. on 03/11/2025 at 17:09
== END ==
PROVIDERS: PCP Registered Nurse Diabetes Educator; Referring Provider Registered Nurse Diabetes Educator; Visit Provider Registered Nurse Diabetes Educator
DX: R07.89 Other chest pain (principal); R94.39 Abnormal result of other cardiovascular function study; I25.9 Chronic ischemic heart disease, unspecified
CPT/HCPCS: 93017

== ENCOUNTER → 2025-08-01 13:17 | Outpatient (CLI) | payer OTHER, SELFPAY ==
[2025-08-01 14:25] LABS: Influenza A - CEPHEID Flu A NEGATIVE (NEGATIVE); Influenza B - CEPHEID Flu B NEGATIVE (NEGATIVE)
[2025-08-01 14:26] LABS: COVID-19 CEPHEID 4-PLEX PCR Negative (Negative)
== END ==
PROVIDERS: PCP Registered Nurse Diabetes Educator; Visit Provider Family Medicine
DX: R50.9 Fever, unspecified (principal); R05.9 Cough, unspecified; R53.81 Other malaise; R53.83 Other fatigue
CPT/HCPCS: 87637